=== PATIENT | female | born 1945 | race Caucasian/White ===

== ENCOUNTER 2020-04-13 09:57 | Inpatient (IN) | payer MEDICARE, BC ==
[~2020-04-13] VITALS: Ht 157.5 cm; Wt 81.6 kg
[2020-04-13 12:03] LABS: HEMOGLOBIN 9.5 gm/dl (12.3-15.3); RED BLOOD COUNT 2.74 M/UL (4.00-5.10); WHITE BLOOD COUNT 11.8 K/UL (4.5-11.0)
[2020-04-13 12:54] LABS: BUN/CREATININE RATIO 20 (0-10)
[2020-04-14 07:07] LABS: HEMOGLOBIN 8.9 gm/dl (12.3-15.3); RED BLOOD COUNT 2.55 M/UL (4.00-5.10)
[2020-04-15] MEDS ORDERED: HYDROCORTISONE10 MG PO ×2 (08:58→08:59)
[2020-04-15] MEDS ORDERED: NEURONTIN300 MG PO (08:58)
[2020-04-15] MEDS ORDERED: FOLIC ACID 1 MG1 MG PO (08:59)
[2020-04-15] MEDS ORDERED: PROTONIX40 MG PO (08:59)
[2020-04-15] MEDS ORDERED: COZAAR50 MG PO (09:00)
[2020-04-15] MEDS ORDERED: LOPRESSOR50 MG PO (09:00)
[2020-04-15] MEDS ORDERED: NORVASC5 MG PO (09:00)
[2020-04-15] MEDS ORDERED: CARDURA2 MG PO (09:01)
[2020-04-15] MEDS ORDERED: ASPIRIN EC81 MG PO (09:01)
[2020-04-15] MEDS ORDERED: LIPITOR40 MG PO (09:03)
[2020-04-15] MEDS ORDERED: LANTUS SOL100 UNIT/1 SC (09:03)
[2020-04-16 04:51] LABS: HEMOGLOBIN 8.1 gm/dl (12.3-15.3); RED BLOOD COUNT 2.36 M/UL (4.00-5.10)
[2020-04-16 05:03] LABS: WHITE BLOOD COUNT 2.8 K/UL (4.5-11.0)
[2020-04-17 04:25] LABS: HEMOGLOBIN 7.5 gm/dl (12.3-15.3); RED BLOOD COUNT 2.24 M/UL (4.00-5.10)
[2020-04-17] MEDS ORDERED: KEFLEX CAP 500500 MG PO (10:29)
[2020-04-18 15:13] LABS: HEMATOCRIT 25.9 % (34.0-46.6)
[2020-04-18 17:13] LABS: ANTIMYELOPEROXIDASE (MPO) ABS <9.0 U/mL (0.0-9.0); ANTIPROTEINASE 3 (PR-3) ABS <3.5 U/mL (0.0-3.5); ATYPICAL PANCA <1:20 titer (Neg:<1:20); CYTOPLASMIC (C-ANCA) <1:20 titer (Neg:<1:20); PERINUCLEAR (P-ANCA) <1:20 titer (Neg:<1:20)
== END 2020-04-17 13:39 | disposition home or self-care (01) | DRG 602 ==
LOC: ER1 09:57 → CDU 16:32 → M/S 16:32
PROVIDERS: Internal Medicine; Internal Medicine Hematology & Oncology; Internal Medicine Nephrology; Physician Assistant; Physician Assistant Medical; ADMIT Internal Medicine
DX: L03.116 Cellulitis of left lower limb (principal); D61.810 Antineoplastic chemotherapy induced pancytopenia; N30.00 Acute cystitis without hematuria; N17.9 Acute kidney failure, unspecified; C79.51 Secondary malignant neoplasm of bone; E87.0 Hyperosmolality and hypernatremia; L03.311 Cellulitis of abdominal wall; Z20.822 Contact with and (suspected) exposure to COVID-19; I25.10 Atherosclerotic heart disease of native coronary artery without angina pectoris; L27.0 Generalized skin eruption due to drugs and medicaments taken internally; T45.1X5A Adverse effect of antineoplastic and immunosuppressive drugs, initial encounter; E78.5 Hyperlipidemia, unspecified; D64.9 Anemia, unspecified; I12.9 Hypertensive chronic kidney disease with stage 1 through stage 4 chronic kidney disease, or unspecified chronic kidney disease; D72.829 Elevated white blood cell count, unspecified; E11.22 Type 2 diabetes mellitus with diabetic chronic kidney disease; N18.30 Chronic kidney disease, stage 3 unspecified; E87.6 Hypokalemia; E66.01 Morbid (severe) obesity due to excess calories; Z68.32 Body mass index [BMI] 32.0-32.9, adult; Z95.1 Presence of aortocoronary bypass graft; Z85.118 Personal history of other malignant neoplasm of bronchus and lung; Z90.49 Acquired absence of other specified parts of digestive tract; Z90.710 Acquired absence of both cervix and uterus; Z79.82 Long term (current) use of aspirin; Z79.4 Long term (current) use of insulin; Z79.899 Other long term (current) drug therapy; Z82.49 Family history of ischemic heart disease and other diseases of the circulatory system; Z80.9 Family history of malignant neoplasm, unspecified
CPT/HCPCS: 36415; 70450; 71045; 80048; 80053; 80202; 81001; 82550; 82553; 82570; 82607; 82728; 82747; 82962; 83520; 83540; 83550; 83605; 83615; 83690; 83735; 83874; 83880; 83921; 84133; 84156; 84300; 84484; 85025; 85027; 86225; 86256; 87086; 89050; 93005; 96365; 96366; 96367; 96372; 96375; 96376; 99285; J0696; J1650; J2020; J2185; J2920; J3370; J3475; J7030; J7070; P9047; Q9967; U0002

== ENCOUNTER 2020-12-22 15:28 | Emergency (ER) | payer MEDICARE, BC ==
[~2020-12-22 15:28] MED LIST: ASPIRIN EC81 MG PO; CARDURA2 MG PO; COZAAR50 MG PO; FOLIC ACID 1 MG1 MG PO; HYDROCORTISONE10 MG PO; KEFLEX CAP 500500 MG PO; LANTUS SOL100 UNIT/1 SC; LIPITOR40 MG PO; LOPRESSOR50 MG PO; NEURONTIN300 MG PO; NORVASC5 MG PO; PROTONIX40 MG PO
[2020-12-22 16:21] LABS: HEMOGLOBIN 15.6 gm/dl (12.3-15.3); RED BLOOD COUNT 4.84 M/UL (4.00-5.10); WHITE BLOOD COUNT 9.4 K/UL (4.5-11.0)
[2020-12-22 16:43] LABS: BUN/CREATININE RATIO 22 (0-10)
== END 2020-12-22 18:43 | disposition home or self-care (01) ==
LOC: ER1 15:28
PROVIDERS: Emergency Medicine
DX: R11.2 Nausea with vomiting, unspecified (principal); E83.42 Hypomagnesemia; C34.90 Malignant neoplasm of unspecified part of unspecified bronchus or lung; Z20.822 Contact with and (suspected) exposure to COVID-19
CPT/HCPCS: 80053; 81001; 82550; 82553; 83735; 84484; 85025; 93005; 96374; 96375; 99284; J2270; J3475; J7120; U0002

== ENCOUNTER → 2020-12-23 | Outpatient (CLI) | payer MEDICARE, BC | LOC: MRI 08:16 | DX: C34.12 Malignant neoplasm of upper lobe, left bronchus or lung (principal); C79.51 Secondary malignant neoplasm of bone; D50.9 Iron deficiency anemia, unspecified; D38.1 Neoplasm of uncertain behavior of trachea, bronchus and lung | CPT/HCPCS: 70553; A9577 ==

== ENCOUNTER → 2021-03-03 | Outpatient (CLI) | payer MEDICARE, BC ==
[~2021-03-03] MED LIST changes: +AUGMENTIN 875-1 EACH PO; +HYDROCODON-ACE1 EAC6 PO; +MAGNESIUM OXID400 M1 PO; +MIRTAZAPINE7.5 MG PO; +OMEPRAZOLE40 MG PO; +POTASSIUM99 M1 PO; +VITAMIN D325 MCG PO
[2021-03-03 11:22] LABS: HEMOGLOBIN 14.5 gm/dl (12.3-15.3); RED BLOOD COUNT 4.59 M/UL (4.00-5.10); WHITE BLOOD COUNT 8.5 K/UL (4.5-11.0)
[2021-03-04 09:14] LABS: A/G RATIO 0.6 (1.2-2.2); BILIRUBIN, TOTAL 0.5 mg/dL (0.0-1.2); CREATININE, SERUM 1.24 mg/dL (0.57-1.00); GLOBULIN, TOTAL 3.3 g/dL (1.5-4.5); POTASSIUM, SERUM 5.4 mmol/L (3.5-5.2); PROTEIN, TOTAL, SERUM 5.2 g/dL (6.0-8.5); TSH 2.97 uIU/mL (0.450-4.500)
== END ==
LOC: LAB 10:17
PROVIDERS: Internal Medicine Hematology & Oncology
DX: C79.51 Secondary malignant neoplasm of bone (principal); C34.12 Malignant neoplasm of upper lobe, left bronchus or lung; D50.9 Iron deficiency anemia, unspecified; D38.1 Neoplasm of uncertain behavior of trachea, bronchus and lung; D64.9 Anemia, unspecified
CPT/HCPCS: 36415; 80053; 84443; 85025

== ENCOUNTER 2021-03-04 11:42 | Inpatient (IN) | payer MEDICARE, BC ==
[~2021-03-04] VITALS: Ht 157.5 cm; Wt 56.7 kg
[~2021-03-04 11:42] MED LIST changes: -AUGMENTIN 875-1 EACH PO; -HYDROCODON-ACE1 EAC6 PO; -MAGNESIUM OXID400 M1 PO; -MIRTAZAPINE7.5 MG PO; -OMEPRAZOLE40 MG PO; -POTASSIUM99 M1 PO; -VITAMIN D325 MCG PO
[2021-03-04 12:40] LABS: HEMOGLOBIN 14.7 gm/dl (12.3-15.3); RED BLOOD COUNT 4.54 M/UL (4.00-5.10); WHITE BLOOD COUNT 12.7 K/UL (4.5-11.0)
[2021-03-04] MEDS ORDERED: OMEPRAZOLE40 MG PO (16:12)
[2021-03-04] MEDS ORDERED: HYDROCODON-ACE1 EAC6 PO (16:12)
[2021-03-04] MEDS ORDERED: POTASSIUM99 M1 PO (16:13)
[2021-03-04] MEDS ORDERED: MAGNESIUM OXID400 M1 PO (16:13)
[2021-03-04] MEDS ORDERED: VITAMIN D325 MCG PO (16:13)
[2021-03-05 03:15] LABS: HEMOGLOBIN 13.2 gm/dl (12.3-15.3); WHITE BLOOD COUNT 10.1 K/UL (4.5-11.0)
[2021-03-05 03:19] LABS: RED BLOOD COUNT 4.08 M/UL (4.00-5.10)
[2021-03-05 04:24] LABS: BUN/CREATININE RATIO 19 (0-10)
[2021-03-05] MEDS ORDERED: AUGMENTIN 875-1 EACH PO (08:50)
[2021-03-05] MEDS ORDERED: MIRTAZAPINE7.5 MG PO (08:50)
--- NOTE | 2021-03-05 10:55 | NUR ---
OXYGEN SATURATION ON ROOM AIR IS 87%.
== END 2021-03-05 15:01 | disposition home or self-care (01) | DRG 194 ==
LOC: ER1 11:42 → PROG CARE 15:07 → CDU 15:07 → PROG CARE 20:36
PROVIDERS: Physician Assistant; ADMIT Internal Medicine
DX: J18.9 Pneumonia, unspecified organism (principal); I13.0 Hypertensive heart and chronic kidney disease with heart failure and stage 1 through stage 4 chronic kidney disease, or unspecified chronic kidney disease; C79.51 Secondary malignant neoplasm of bone; C34.90 Malignant neoplasm of unspecified part of unspecified bronchus or lung; Z66 Do not resuscitate; Z20.822 Contact with and (suspected) exposure to COVID-19; I25.10 Atherosclerotic heart disease of native coronary artery without angina pectoris; Z95.1 Presence of aortocoronary bypass graft; N18.30 Chronic kidney disease, stage 3 unspecified; E78.5 Hyperlipidemia, unspecified; R79.89 Other specified abnormal findings of blood chemistry; E86.0 Dehydration; G47.33 Obstructive sleep apnea (adult) (pediatric); R00.0 Tachycardia, unspecified; E11.22 Type 2 diabetes mellitus with diabetic chronic kidney disease; I50.9 Heart failure, unspecified; E86.1 Hypovolemia; Z90.710 Acquired absence of both cervix and uterus; Z92.21 Personal history of antineoplastic chemotherapy; Z90.49 Acquired absence of other specified parts of digestive tract; Z90.89 Acquired absence of other organs; Z90.5 Acquired absence of kidney; Z98.890 Other specified postprocedural states; Z82.49 Family history of ischemic heart disease and other diseases of the circulatory system; Z95.5 Presence of coronary angioplasty implant and graft
CPT/HCPCS: 36415; 71045; 80053; 81001; 82550; 82553; 82962; 83605; 83690; 83735; 83874; 83880; 84443; 84484; 85025; 87040; 93005; 96374; 96375; 99285; J0692; J0696; J2405; J7030; U0002